=== PATIENT | male | born 1990 | race African-American/Black ===

== ENCOUNTER 2018-12-12 21:07 | Emergency (ER) | payer MEDICAID ==
[~2018-12-12] VITALS: Ht 182.9 cm; Wt 7.3 kg
[2018-12-12] MEDS ORDERED: Morphine Sulfate 2mg/ml Inj(IV/IM USE ONLY) IM ONE (21:15)
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
[2018-12-12 21:26] VITALS: BP 121/67
--- NOTE | 2018-12-12 21:34 | NUR ---
ED Nurse Note:pt. refused to change into gown
[2018-12-12] MEDS ORDERED: IBUPROFEN600 MG ORAL (21:48)
[2018-12-12] MEDS ORDERED: HYDROCODON-ACE1 EA15 ORAL (21:48)
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
[2018-12-12 22:03] VITALS: BP 121/67
--- NOTE | 2018-12-12 22:05 | NUR ---
ER DISCHARGE NOTE:arm sling was placed on left arm Patient is cleared to be discharged per ERMD, pt is aox4, on room air, with stable vital signs. pt was given dc and prescription instructions, pt was able to verbalize understanding, pt is able to ambulate with steady gait. pt took all belongings.
== END 2018-12-12 22:12 | disposition home or self-care (01) ==
LOC: EDBD 21:07 → EMR 21:21
DX: S40.022A Contusion of left upper arm, initial encounter (principal); S70.02XA Contusion of left hip, initial encounter; S39.012A Strain of muscle, fascia and tendon of lower back, initial encounter; F17.200 Nicotine dependence, unspecified, uncomplicated; V43.52XA Car driver injured in collision with other type car in traffic accident, initial encounter; Y92.410 Unspecified street and highway as the place of occurrence of the external cause
CPT/HCPCS: 73060; 73090; 73510; 96372; J2270; Z7502; 73502; 99284